=== PATIENT | male | born 1980 | race Caucasian/White ===

== ENCOUNTER 2024-02-21 10:43 | Inpatient (IN) | payer OTHER, SELFPAY ==
[2024-02-21] VITALS (11 sets, daily range): BP systolic 107–150; BP diastolic 58–100; PULSE 65–100; RESP 12–169; TEMP 36.6–36.8; O2SAT 92–99; BMI 28.3; BMI 29.3
--- NOTE | 2024-02-21 | ECG_ITS ---
Test Reason : ACS Blood Pressure : / mmHG Vent. Rate : 081 BPM Atrial Rate : 081 BPM P-R Int : 188 ms QRS Dur : 094 ms QT Int : 380 ms P-R-T Axes : 054 010 028 degrees QTc Int : 441 ms Normal sinus rhythm Normal ECG No previous ECGs available Referred By: Tamia Romero Electronically Signed By:GINNY WARREN MD
--- NOTE | 2024-02-21 11:20 | ED_ITS ---
HPI - General Adult General Chief complaint: Recheck/Abnormal Lab/Rx Stated complaint: diabetic episode, cant see Time Seen by Provider: 02/21/24 13:12 Source: patient Mode of arrival: ambulatory Limitations: no limitations History of Present Illness ED Provider: Dr. Prescott HPI narrative: 43-year-old male no past medical history does not take medications who states he does have strong family history of diabetes he has been having increased thirst elevated blood sugar blurry vision. Patient has not been diagnosed with diabetes. He denies any falls or injuries he denies chest pain or cough patient seen in triage labs were sent patient does have an anion gap positive beta hydroxybutyrate. Related Data Home Medications ?Medication ?Instructions ?Recorded ?Confirmed No Known Home Meds 02/21/24 02/21/24 Allergies Allergy/AdvReac Type Severity Reaction Status Date / Time Penicillins [PENICILLINS] Allergy Severe HIVES Unverified 02/21/24 11:19 Review of Systems 2 Review of Systems: Review of systems: General: Patient denies any fever chills recent illness or falls Musculoskeletal: Denies back pain or body aches or other injuries HEENT: denies headache, runny nose, ear pain Respiratory: denies shortness of breath, cough Cardiovascular: no chest pain or palpitations : denies dysuria, frequency Abdomen: no nausea vomiting denies abdominal pain Extremities: no swelling, no pain Skin: no diaphoresis Yes all other systems are reviewed and are negative PMFSH Past Medical History Medical History (Updated 02/21/24 @ 16:27 by Danya Dillon RN) Sleep apnea Social History Social History Household Members: None Housing: Apartment Do you presently have visiting nurse or other home services: No Patient Tobacco Use Status: Never used Tobacco Use of substances other than those prescribed or required for medical reasons: No Currently Displaying Signs/Symptoms of Drug Intoxication Withdrawal: No Have you been hit, kicked, punched, or otherwise hurt by someone within the past year? If so, by whom?: No Do you feel safe in your current relationship?: Yes Is there a partner from a previous relationship who is making you feel unsafe now?: No Are you made to feel afraid or neglected: No Advance Directives: No Advance Directives Information Provided: Yes Do you have a plan to hurt others: No Plan Recently lost weight without trying: No Nutrition Risks: No Nutritional Risk Physical Exam ED Vital Signs: Vital Signs - 24 hr 02/21/24 11:17 Temperature 98.3 F Pulse Rate 100 Respiratory Rate 18 Blood Pressure 150/100 H Pulse Oximetry 96 Oxygen Delivery Method Room Air BMI result Body Mass Index 29.3 Neurological exam: CN II- XII tested. Patient is alert and oriented to person place and time. Patient has no dysphagia or dysarthia, denies good vision in all four vision tafoya no nystagmus on exam, good strength to upper and lower extremities with normal reflexes to brachioradialis, wrist, patella and achilles. Negative romberg, good finger to nose and heel to stanley. General: Well-appearing well-nourished in no signs of distress HEENT: Normocephalic atraumatic Neck: No signs of JVD, no masses no tenderness or lymphadenopathy Cardiovascular: Regular rate and rhythm Respiratory: Clear to auscultation bilaterally Abdomen: Soft nontender no masses Extremities: Normal pedal pulses no signs of edema Skin: Dry warm no rashes Back: No tenderness full ROM Course Course Course Narrative: RME: DOne by GERBER Fermin. 43-year-old male presents to ED for blurry vision and elevated glucose. Patient states family history of diabetes. Patient states at work started having blurry vision. They did a fingerstick on patient in his glucose was 400. Patient states also polyuria. Patient denies any weight loss. Physical exam negative for any signs of any neuro deficits. Not suspecting stroke. Labs POC ordered Medications Administered Generic Name Dose Route Start Last Admin Trade Name Freq PRN Reason Stop Dose Admin Enoxaparin Sodium 40 mg 02/21/24 16:00 02/21/24 16:52 Enoxaparin Sodium 40 Mg/0.4 Ml Syringe SUBCUT 40 mg Q24H MANUELA Administration Discontinued Medications Generic Name Dose Route Start Last Admin Trade Name Freq PRN Reason Stop Dose Admin Lactated Ringer's 1,000 mls @ 999 mls/hr 02/21/24 13:15 02/21/24 15:12 Lr IV 02/21/24 14:15 Infused .Q1H1M MANUELA Infusion Insulin Human Regular 100 unit in 100 mls @ 8 mls/hr 02/21/24 13:15 02/21/24 21:43 Myxredlin IVCONT Infused .[id number] MANUELA Titration Protocol 8 UNIT/HR Sodium Chloride 1,000 mls @ 999 mls/hr 02/21/24 13:45 02/21/24 15:12 Ns IV 02/21/24 14:45 Infused .Q1H1M MANUELA Infusion Potassium Chloride/Dextrose 20 meq in 1,000 mls @ 100 mls/hr 02/21/24 15:00 02/21/24 21:44 Kcl 20 Meq In 5 % Dextrose IVCONT Infused .Q10H MANUELA Infusion Potassium Phosphate 15 mmol in 250 mls @ 62.5 mls/hr 02/21/24 15:13 02/21/24 20:16 Kphos IV 02/21/24 19:12 Infused ONCE ONE Infusion Medical Decision Making Medical Decision Making MDM Narrative: Labs are back the patient has potassium of 3.9 I will start the patient on insulin I think the patient would benefit from admission I will discuss the case with the ICU Differential Diagnosis Differential Diagnoses: The differential diagnosis associated with the presentation includes New onset diabetes diabetic ketoacidosis dehydration electrolyte abnormality Admission/Observation Consideration of admission/observation: Escalation of care including admission/observation considered Consult Healthcare Provider Management of the patient was discussed with: Hospitalist and Online Content Coordinator [id number] Dr. Romero from the ICU and I discussed the case and reviewed the labs. She stated she will take the patient. Lab Data MDM Lab Attestation statement: I reviewed the patient's lab results. 02/21/24 11:38 02/21/24 18:18 Labs: Lab Results 02/21/24 02/21/24 02/21/24 Range/Units 11:38 11:43 13:10 WBC 5.8 (4.8-10.8) X10*3/uL RBC 5.37 (4.60-5.80) X10*6/uL Hgb 15.4 (14.0-18.0) g/dl Hct 42.9 (42.0-52.0) % MCV 79.9 L (80.0-98.0) fL MCH 28.7 (27.0-33.0) pg MCHC 35.9 (31.0-36.0) g/dl RDW 12.3 (11.0-16.0) % Plt Count 271 (160-400) X10*3/uL MPV 9.7 (9.4-12.4) fL Immature Gran % (Auto) 0.2 (0.0-0.4) % Neut % (Auto) 68.7 (45-73) % Lymph % (Auto) 25.8 (20-40) % [place] % (Auto) 4.3 (2-11) % Eos % (Auto) 0.3 (0-4) % Baso % (Auto) 0.7 (0-2) % Lymph # (Auto) 1.5 (1.2-4.9) X10*3/uL [place] # (Auto) 0.3 (0.1-1.2) X10*3/uL Eos # (Auto) 0.0 (0.0-0.4) X10*3/uL Baso # (Auto) 0.0 (0.0-0.2) X10*3/uL Abs Immat Gran (auto) 0.01 (0.00-0.03) X10*3/uL Absolute Neuts (auto) 4.0 (2.0-8.3) x10*3/uL Absolute Nucleated RBC 0.000 (0.0-0.012) X10*3/uL Nucleated RBC % (auto) 0.0 (0.0-0.2) /100WBC Sodium 132 L (135-145) mmol/L Potassium 3.9 (3.3-5.1) mmol/L Chloride 97 (96-108) mmol/L Carbon Dioxide 23 (22-29) mmol/L Anion Gap 16 (12-20) BUN 13 (9-16) mg/dL Creatinine 1.32 (0.5-1.4) mg/dL Estim Creat Clear Calc 78.0 Estimated GFR 59 POC Glucose 393 H* 341 H (60-115) mg/dL Random Glucose 395 H* (60-115) mg/dL Calcium 9.4 (8.4-10.2) mg/dL Total Bilirubin 0.5 (0.0-1.0) mg/dL AST 22 (5-37) U/L ALT 30 (0-40) U/L Alkaline Phosphatase 132 H (39-117) U/L Total Protein 7.6 (6.5-8.0) g/dL Albumin 4.4 (3.5-5.0) g/dL Beta-Hydroxybutyrate 1.92 H (0.02-0.27) mmol/L Urine Color Yellow Urine Appearance Clear Urine pH 5.0 (5.0-9.0) Ur Specific [place] >= 1.030 H (1.005-1.025) Urine Protein Trace (Neg-Trace) mg/dL Urine Glucose (UA) >=1000 H (Negative) mg/dL Urine Ketones 80 (Negative) mg/dL Urine Blood Negative (Negative) Urine Nitrite Negative (Negative) Ur Leukocyte Esterase Negative (Negative) Urine RBC 0-2 (0-2) /HPF Urine WBC 0-5 (0-5) /HPF Ur Squamous Epith Cells 0-2 (0-2) /HPF Urine Bacteria None Seen (None Seen) Hyaline Casts 0-2 (0-2) /LPF Independent Interpretation I performed an independent interpretation of an: EKG and Plain X-Ray Radiology Impression Discussion of test interpretation with radiology: I have reviewed the radiologist's reading. External Record Review External record reviewed: Inpatient record, Office record and Outpatient record Chronic Conditions Patient?s care impacted by: Diabetes Core Measures AMI core measures followed: Yes Critical Care Time Critical Care Time Critical Care Time: Yes Total Critical Care Time: 35 Attestation: Concern for DKA started on insulin drip discussion with ICU and admission. Discharge Plan Discharge Clinical Impression: Diabetes mellitus, new onset, Diabetic ketoacidosis Patient Disposition: Admitted As Inpatient Discharge Date/Time: 02/21/24 14:31
[2024-02-21 11:41] LABS: MANUAL DIFF FLAG NO
[2024-02-21 11:44] LABS: Basophils Percent Auto 0.7 % (0-2); Eosinophils Percent Auto 0.3 % (0-4); Hematocrit 42.9 % (42.0-52.0); Hemoglobin 15.4 g/dl (14.0-18.0); Imm Gran Abs Auto 0.01 X10*3/uL (0.00-0.03); Imm Gran Pct Auto 0.2 % (0.0-0.4); Lymphocytes Absolute Auto 1.5 X10*3/uL (1.2-4.9); Lymphocytes Percent Auto 25.8 % (20-40); Mean Corpuscular HGB Conc 35.9 g/dl (31.0-36.0); Mean Corpuscular Hemoglobin 28.7 pg (27.0-33.0); Mean Corpuscular Volume 79.9 fL (80.0-98.0); Mean Platelet Volume 9.7 fL (9.4-12.4); Monocytes Absolute Auto 0.3 X10*3/uL (0.1-1.2); Monocytes Percent Auto 4.3 % (2-11); Neutrophils Percent Auto 68.7 % (45-73); Platelet Count 271 X10*3/uL (160-400); Red Blood Count 5.37 X10*6/uL (4.60-5.80); Red Cell Distribution Width 12.3 % (11.0-16.0); White Blood Count 5.8 X10*3/uL (4.8-10.8)
[2024-02-21 11:45] LABS: Appearance Urine Clear; Color Urine Yellow; Glucose Urine UA >=1000 mg/dL (Negative); Leukocyte Esterase Urine Negative (Negative); Nitrite Urine Negative (Negative); Specific Gravity - Urine >= 1.030 (1.005-1.025); UMIC TRIGGER UACC YES; Urine Blood Negative (Negative); Urine Ketones 80 mg/dL (Negative); Urine Protein Trace mg/dL (Neg-Trace)
[2024-02-21 11:48] LABS: Glucose, Whole Blood 393 mg/dL (60-115)
[2024-02-21 11:53] LABS: Bacteria Urine None Seen (None Seen); Hyaline Casts Urine 0-2 /LPF (0-2); RBC Urine 0-2 /HPF (0-2); Squamous Epithelial Cell Urine 0-2 /HPF (0-2); WBC Urine 0-5 /HPF (0-5)
[2024-02-21 12:03] LABS: Beta-Hydroxybutyrate 1.92 mmol/L (0.02-0.27)
[2024-02-21 12:13] LABS: Alanine Aminotransferase 30 U/L (0-40); Albumin Level 4.4 g/dL (3.5-5.0); Alkaline Phosphatase 132 U/L (39-117); Anion Gap 16 (12-20); Aspartate Amino Transferase 22 U/L (5-37); Bilirubin Total 0.5 mg/dL (0.0-1.0); Blood Urea Nitrogen 13 mg/dL (9-16); Calcium 9.4 mg/dL (8.4-10.2); Carbon Dioxide 23 mmol/L (22-29); Chloride 97 mmol/L (96-108); Estimated Glomerular Filt Rate 59; Glucose Random 395 mg/dL (60-115); Potassium 3.9 mmol/L (3.3-5.1); Sodium 132 mmol/L (135-145); Total Protein 7.6 g/dL (6.5-8.0)
[2024-02-21] MEDS: Lactated Ringers 1,000 ML 999 ML IV (13:22)
--- NOTE | 2024-02-21 13:38 | P.HPCC_ITS ---
History of Present Illness Date of Service: 02/21/24 Chief Complaint: New-Diagnosis Diabetes Mellitus Patient is a 43 Y M presenting initially to emergency department on 02/20 w/ polydipsia and polyuria, found to have laboratories suggestive of diabetic ketoacidosis, admitted ICU on insulin gtt Review of Systems 2 Review of Systems: Yes all other systems are reviewed and are negative [facility] Social History Social History Patient Tobacco Use Status: Never used Tobacco Advance Directives: No Advance Directives Information Provided: Yes Do you have a plan to hurt others: No Plan Meds Allergies Allergy/AdvReac Type Severity Reaction Status Date / Time Penicillins [PENICILLINS] Allergy Severe HIVES Unverified 02/21/24 11:19 Active Medications: Current Medications Lactated Ringer's (Lr) 1,000 mls @ 999 mls/hr IV .Q1H1M MANUELA Stop: 02/21/24 14:15 Last Admin: 02/21/24 13:22 Dose: 999 mls/hr Insulin Human Regular (Myxredlin) 100 unit in 100 mls @ 8 mls/hr IVCONT .[id number] MANUELA; Protocol Dextrose (D10) 250 mls @ 750 mls/hr IV Q30M PRN PRN Reason: BG <70 Home Medications ?Medication ?Instructions ?Recorded ?Confirmed ?Last Taken ?Type No Known Home Meds 02/21/24 02/21/24 Unknown History Physical Exam 2 Vital Signs: Vital Signs: Last Vital Signs Temp 98.3 F 02/21/24 11:17 Pulse 100 02/21/24 11:17 Resp 18 02/21/24 11:17 BP 150/100 H 02/21/24 11:17 Pulse Ox 96 02/21/24 11:17 O2 Del Method Room Air 02/21/24 11:17 BMI result Body Mass Index 28.3 Const: General: cooperative, healthy appearing, comfortable, no acute distress, well developed, alert, awake and Physically active O rientation/consciousness: patient oriented x3 HEENT: Head: Yes normal to inspection, Yes normocephalic and Yes atraumatic Eyes: General: appearance normal, both eyes and all related structures Neck: Neck: Yes normal visual inspection, Yes full ROM, Yes no meningeal signs, Yes trachea midline and Yes supple Chest: Chest palpation & inspection: normal inspection of the chest Resp: Other: no appreciable rales, rhonchi, wheezing Effort & Inspection: normal respiratory effort Cardio: Rate: regular rate Rhythm: regular rhythm GI: Inspection: Yes normal to inspection, No Abdominal wall edema and No distended Palpation (GI): Soft to palpation, not firm, nontender, no guarding and not rigid Skin: General skin exam: no rashes or lesions noted Neuro: Other: appreciable decreased far vision, bilaterally; normal near vision, bilaterally General: patient oriented x3, tone normal, moves all extremities, no meningeal signs and no focal motor deficits Extrem: General: Yes normal to inspection, Yes full ROM, Yes capillary refill normal and Yes no clubbing, cyanosis or edema Psych: Appearance: grossly normal Results Labs 02/21/24 11:38 02/21/24 11:38 Labs: Laboratory Results - last 24 hr 02/21/24 02/21/24 11:38 11:43 MCV 79.9 L MCH 28.7 MCHC 35.9 RDW 12.3 Plt Count 271 MPV 9.7 Immature Gran % (Auto) 0.2 Neut % (Auto) 68.7 Lymph % (Auto) 25.8 [place] % (Auto) 4.3 Eos % (Auto) 0.3 Baso % (Auto) 0.7 Lymph # (Auto) 1.5 [place] # (Auto) 0.3 Eos # (Auto) 0.0 Baso # (Auto) 0.0 Abs Immat Gran (auto) 0.01 Absolute Neuts (auto) 4.0 Absolute Nucleated RBC 0.000 Nucleated RBC % (auto) 0.0 Anion Gap 16 Estim Creat Clear Calc 78.0 Estimated GFR 59 POC Glucose 393 H* Random Glucose 395 H* Calcium 9.4 Total Bilirubin 0.5 AST 22 ALT 30 Alkaline Phosphatase 132 H Total Protein 7.6 Albumin 4.4 Beta-Hydroxybutyrate 1.92 H Urine Color Yellow Urine Appearance Clear Urine pH 5.0 Ur Specific [place] >= 1.030 H Urine Protein Trace Urine Glucose (UA) >=1000 H Urine Ketones 80 Urine Blood Negative Urine Nitrite Negative Ur Leukocyte Esterase Negative Urine RBC 0-2 Urine WBC 0-5 Ur Squamous Epith Cells 0-2 Urine Bacteria None Seen Hyaline Casts 0-2 Assessment and Plan (1) Diabetic ketoacidosis: Status: Acute Plan Patient is a 43 Y M presenting initially to emergency department on 02/20 w/ polydipsia and polyuria, found to have laboratories suggestive of diabetic ketoacidosis, admitted ICU on insulin gtt N: no acute issues CV: no acute issues R: no acute issues GI: NPO while on DKA protocol : no acute issues H: no acute issues ID: no acute issues E: new-diagnosis insulin-dependent diabetes mellitus, c/b DKA, on DKA protocol
[2024-02-21] MEDS: Insulin Regular/NS 100 UNIT/100 ML PLAST..BAG 8 UNIT IVCONT (13:42)
[2024-02-21] MEDS: 0.9 % Sodium Chloride 1,000 ML 999 ML IV (13:45)
[2024-02-21 14:05] LABS: Glucose, Whole Blood 341 mg/dL (60-115)
--- NOTE | 2024-02-21 14:20 | PHA.MEDREC ---
Addendum entered by Santy Fuentes [facility] 02/21/24 16:42: Med double checked by [facility] Original Note: Pharmacy Consult ? Medication Reconciliation Pharmacy has completed the medication reconciliation. Patient states they are not taking anything.
[2024-02-21 14:43] LABS: Glucose, Whole Blood 252 mg/dL (60-115)
[2024-02-21 14:47] LABS: VBG Base Excess -1.4 mmol/L; VBG HCO3 20 mmol/L (22-26); VBG pCO2 25 mmHg; VBG pO2 60 mmHg
[2024-02-21 15:03] LABS: Anion Gap 14 (12-20); Blood Urea Nitrogen 12 mg/dL (9-16); Carbon Dioxide 23 mmol/L (22-29); Chloride 103 mmol/L (96-108); Creatinine Clr Calc Pharmacy 101.4; Estimated Glomerular Filt Rate > 60; Glucose Random 268 mg/dL (60-115); Magnesium 2.1 mg/dL (1.6-2.6); Phosphorus 2.1 mg/dL (2.7-4.5); Potassium 3.8 mmol/L (3.3-5.1); Sodium 136 mmol/L (135-145)
[2024-02-21] MEDS: KCl 20 mEq in 5 % Dextrose 20 MEQ/1,000 ML IV.SOLN 100 MEQ IVCONT (15:23)
[2024-02-21 15:28] LABS: Glucose, Whole Blood 202 mg/dL (60-115)
[2024-02-21] MEDS: Potassium Phosphate/NS 15 MMOL/250 ML PLAST..BAG 62.5 MMOL IV (16:09)
[2024-02-21 16:34] LABS: Glucose, Whole Blood 117 mg/dL (60-115)
[2024-02-21] MEDS: Enoxaparin Sodium 40 MG/0.4 ML SYRINGE SUBCUT (16:52)
[2024-02-21 17:36] LABS: Glucose, Whole Blood 86 mg/dL (60-115)
[2024-02-21 18:06] LABS: Glucose, Whole Blood 76 mg/dL (60-115)
[2024-02-21 18:31] LABS: Glucose, Whole Blood 97 mg/dL (60-115)
[2024-02-21 18:49] LABS: Anion Gap 10 (12-20); Blood Urea Nitrogen 10 mg/dL (9-16); Calcium 8.3 mg/dL (8.4-10.2); Carbon Dioxide 23 mmol/L (22-29); Chloride 107 mmol/L (96-108); Creatinine Clr Calc Pharmacy 132.2; Estimated Glomerular Filt Rate > 60; Glucose Random 88 mg/dL (60-115); Phosphorus 2.8 mg/dL (2.7-4.5); Potassium 3.2 mmol/L (3.3-5.1); Sodium 137 mmol/L (135-145)
[2024-02-21 18:58] LABS: Venous Blood Gas Refer to POC result
[2024-02-21 19:08] LABS: Glucose, Whole Blood 110 mg/dL (60-115)
[2024-02-21 20:03] LABS: Glucose, Whole Blood 137 mg/dL (60-115)
[2024-02-21 21:16] LABS: Glucose, Whole Blood 135 mg/dL (60-115)
[2024-02-22] VITALS (14 sets, daily range): BP systolic 105–137; BP diastolic 61–91; PULSE 71–94; RESP 12–18; TEMP 36.1–36.7; O2SAT 90–99; BMI 32.9
--- NOTE | 2024-02-22 | ECG_ITS ---
Test Reason : CHEST PAIN Blood Pressure : / mmHG Vent. Rate : 089 BPM Atrial Rate : 089 BPM P-R Int : 178 ms QRS Dur : 090 ms QT Int : 362 ms P-R-T Axes : 059 003 042 degrees QTc Int : 440 ms Normal sinus rhythm Normal ECG No previous ECGs available Referred By: Xavi Wilson Electronically Signed By:GINNY WARREN MD
[2024-02-22 00:10] LABS: Glucose, Whole Blood 150 mg/dL (60-115)
[2024-02-22 00:17] LABS: Alanine Aminotransferase 24 U/L (0-40); Albumin Level 3.6 g/dL (3.5-5.0); Alkaline Phosphatase 95 U/L (39-117); Anion Gap 16 (12-20); Aspartate Amino Transferase 24 U/L (5-37); Bilirubin Total 0.7 mg/dL (0.0-1.0); Blood Urea Nitrogen 9 mg/dL (9-16); Calcium 8.5 mg/dL (8.4-10.2); Carbon Dioxide 19 mmol/L (22-29); Chloride 105 mmol/L (96-108); Creatinine Clr Calc Pharmacy 124.4; Estimated Glomerular Filt Rate > 60; Glucose Random 161 mg/dL (60-115); Phosphorus 3.5 mg/dL (2.7-4.5); Potassium 3.6 mmol/L (3.3-5.1); Sodium 136 mmol/L (135-145); Total Protein 6.2 g/dL (6.5-8.0)
[2024-02-22] MEDS: Insulin Lispro 100 UNIT/ML 3 ML VIAL SUBCUT ×6 (00:43→22:02)
[2024-02-22] MEDS: Lactated Ringers 1,000 ML 150 ML IVCONT (00:48)
[2024-02-22 05:47] LABS: Estimated Average Glucose 272 mg/dL; Hemoglobin A1c % 11.1 % (<6.0)
[2024-02-22 06:11] LABS: MANUAL DIFF FLAG NO
[2024-02-22 06:14] LABS: Basophils Percent Auto 0.5 % (0-2); Eosinophils Absolute Auto 0.1 X10*3/uL (0.0-0.4); Eosinophils Percent Auto 1.3 % (0-4); Hematocrit 39.2 % (42.0-52.0); Hemoglobin 13.8 g/dl (14.0-18.0); Imm Gran Abs Auto 0.01 X10*3/uL (0.00-0.03); Imm Gran Pct Auto 0.2 % (0.0-0.4); Lymphocytes Absolute Auto 1.9 X10*3/uL (1.2-4.9); Lymphocytes Percent Auto 31.6 % (20-40); Mean Corpuscular HGB Conc 35.2 g/dl (31.0-36.0); Mean Corpuscular Hemoglobin 28.5 pg (27.0-33.0); Mean Corpuscular Volume 80.8 fL (80.0-98.0); Mean Platelet Volume 9.4 fL (9.4-12.4); Monocytes Absolute Auto 0.3 X10*3/uL (0.1-1.2); Monocytes Percent Auto 4.8 % (2-11); Neutrophils Absolute Auto 3.7 x10*3/uL (2.0-8.3); Neutrophils Percent Auto 61.6 % (45-73); Platelet Count 235 X10*3/uL (160-400); Red Blood Count 4.85 X10*6/uL (4.60-5.80); Red Cell Distribution Width 12.6 % (11.0-16.0)
[2024-02-22 06:26] LABS: Glucose, Whole Blood 163 mg/dL (60-115)
[2024-02-22 06:33] LABS: Phosphorus 2.8 mg/dL (2.7-4.5)
[2024-02-22 07:22] LABS: Glucose, Whole Blood 162 mg/dL (60-115)
[2024-02-22 07:48] LABS: Alanine Aminotransferase 25 U/L (0-40); Albumin Level 3.4 g/dL (3.5-5.0); Alkaline Phosphatase 88 U/L (39-117); Anion Gap 13 (12-20); Aspartate Amino Transferase 24 U/L (5-37); Bilirubin Total 0.7 mg/dL (0.0-1.0); Blood Urea Nitrogen 8 mg/dL (9-16); Calcium 8.6 mg/dL (8.4-10.2); Carbon Dioxide 22 mmol/L (22-29); Chloride 105 mmol/L (96-108); Creatinine Clr Calc Pharmacy 128.5; Estimated Glomerular Filt Rate > 60; Glucose Random 168 mg/dL (60-115); Potassium 3.4 mmol/L (3.3-5.1); Sodium 137 mmol/L (135-145); Total Protein 6.1 g/dL (6.5-8.0)
--- NOTE | 2024-02-22 08:25 | P.PNCC_ITS ---
Subjective Subjective Date of Service: 02/22/24 Interval History: no significant overnight events; transitioned from insulin gtt to SQ Critical Care Time (minutes): 0 Physical Exam 2 Vital Signs: Vital Signs: Last Vital Signs Temp 98.0 F 02/22/24 08:00 Pulse 76 02/22/24 08:00 Resp 15 02/22/24 08:00 BP 127/83 02/22/24 08:00 Pulse Ox 99 02/22/24 08:00 O2 Del Method Room Air 02/22/24 08:00 O2 Flow Rate 2 02/22/24 07:00 BMI result Body Mass Index 32.9 Const: General: cooperative, healthy appearing, comfortable, no acute distress, well developed, alert, awake and Physically active O rientation/consciousness: patient oriented x3 HEENT: Head: Yes normal to inspection, Yes normocephalic and Yes atraumatic Eyes: General: appearance normal, both eyes and all related structures Neck: Neck: Yes normal visual inspection, Yes full ROM, Yes trachea midline and Yes supple Chest: Chest palpation & inspection: normal inspection of the chest Resp: Other: no appreciable rales, rhonchi, wheezing Effort & Inspection: normal respiratory effort Cardio: Rate: regular rate Rhythm: regular rhythm GI: Inspection: Yes normal to inspection, No Abdominal wall edema and No distended Palpation (GI): Soft to palpation, not firm, nontender, no guarding and not rigid Skin: General skin exam: no rashes or lesions noted Neuro: General: patient oriented x3, tone normal, moves all extremities and no focal motor deficits Extrem: General: Yes normal to inspection, Yes full ROM, Yes capillary refill normal and Yes no clubbing, cyanosis or edema Psych: Appearance: grossly normal Objective Data Labs 02/22/24 05:51 02/22/24 07:07 Labs: Laboratory Results - last 24 hr 02/21/24 02/21/24 02/21/24 11:38 11:43 13:10 WBC 5.8 RBC 5.37 Hgb 15.4 Hct 42.9 MCV 79.9 L MCH 28.7 MCHC 35.9 RDW 12.3 Plt Count 271 MPV 9.7 Immature Gran % (Auto) 0.2 Neut % (Auto) 68.7 Lymph % (Auto) 25.8 [place] % (Auto) 4.3 Eos % (Auto) 0.3 Baso % (Auto) 0.7 Lymph # (Auto) 1.5 [place] # (Auto) 0.3 Eos # (Auto) 0.0 Baso # (Auto) 0.0 Abs Immat Gran (auto) 0.01 Absolute Neuts (auto) 4.0 Absolute Nucleated RBC 0.000 Nucleated RBC % (auto) 0.0 VBG pH VBG pCO2 VBG pO2 VBG HCO3 VBG O2 Saturation VBG Base Excess Sodium 132 L Potassium 3.9 Chloride 97 Carbon Dioxide 23 Anion Gap 16 BUN 13 Creatinine 1.32 Estim Creat Clear Calc 78.0 Estimated GFR 59 POC Glucose 393 H* 341 H Random Glucose 395 H* Estimat Average Glucose Hemoglobin A1c % Calcium 9.4 Phosphorus Magnesium Total Bilirubin 0.5 AST 22 ALT 30 Alkaline Phosphatase 132 H Total Protein 7.6 Albumin 4.4 Beta-Hydroxybutyrate 1.92 H Urine Color Yellow Urine Appearance Clear Urine pH 5.0 Ur Specific [place] >= 1.030 H Urine Protein Trace Urine Glucose (UA) >=1000 H Urine Ketones 80 Urine Blood Negative Urine Nitrite Negative Ur Leukocyte Esterase Negative Urine RBC 0-2 Urine WBC 0-5 Ur Squamous Epith Cells 0-2 Urine Bacteria None Seen Hyaline Casts 0-2 02/21/24 02/21/24 02/21/24 14:38 14:39 14:41 WBC RBC Hgb Hct MCV MCH MCHC RDW Plt Count MPV Immature Gran % (Auto) Neut % (Auto) Lymph % (Auto) [place] % (Auto) Eos % (Auto) Baso % (Auto) Lymph # (Auto) [place] # (Auto) Eos # (Auto) Baso # (Auto) Abs Immat Gran (auto) Absolute Neuts (auto) Absolute Nucleated RBC Nucleated RBC % (auto) VBG pH 7.50 H VBG pCO2 25 VBG pO2 60 VBG HCO3 20 L VBG O2 Saturation 93.0 VBG Base Excess -1.4 Sodium 136 Potassium 3.8 Chloride 103 Carbon Dioxide 23 Anion Gap 14 BUN 12 Creatinine 1.03 Estim Creat Clear Calc 101.4 Estimated GFR > 60 POC Glucose 252 H Random Glucose 268 H Estimat Average Glucose Hemoglobin A1c % Calcium 9.0 Phosphorus 2.1 L Magnesium 2.1 Total Bilirubin AST ALT Alkaline Phosphatase Total Protein Albumin Beta-Hydroxybutyrate Urine Color Urine Appearance Urine pH Ur Specific [place] Urine Protein Urine Glucose (UA) Urine Ketones Urine Blood Urine Nitrite Ur Leukocyte Esterase Urine RBC Urine WBC Ur Squamous Epith Cells Urine Bacteria Hyaline Casts 02/21/24 02/21/24 02/21/24 15:25 16:30 17:33 WBC RBC Hgb Hct MCV MCH MCHC RDW Plt Count MPV Immature Gran % (Auto) Neut % (Auto) Lymph % (Auto) [place] % (Auto) Eos % (Auto) Baso % (Auto) Lymph # (Auto) [place] # (Auto) Eos # (Auto) Baso # (Auto) Abs Immat Gran (auto) Absolute Neuts (auto) Absolute Nucleated RBC Nucleated RBC % (auto) VBG pH VBG pCO2 VBG pO2 VBG HCO3 VBG O2 Saturation VBG Base Excess Sodium Potassium Chloride Carbon Dioxide Anion Gap BUN Creatinine Estim Creat Clear Calc Estimated GFR POC Glucose 202 H 117 H 86 Random Glucose Estimat Average Glucose Hemoglobin A1c % Calcium Phosphorus Magnesium Total Bilirubin AST ALT Alkaline Phosphatase Total Protein Albumin Beta-Hydroxybutyrate Urine Color Urine Appearance Urine pH Ur Specific [place] Urine Protein Urine Glucose (UA) Urine Ketones Urine Blood Urine Nitrite Ur Leukocyte Esterase Urine RBC Urine WBC Ur Squamous Epith Cells Urine Bacteria Hyaline Casts 02/21/24 02/21/24 02/21/24 18:02 18:18 18:27 WBC RBC Hgb Hct MCV MCH MCHC RDW Plt Count MPV Immature Gran % (Auto) Neut % (Auto) Lymph % (Auto) [place] % (Auto) Eos % (Auto) Baso % (Auto) Lymph # (Auto) [place] # (Auto) Eos # (Auto) Baso # (Auto) Abs Immat Gran (auto) Absolute Neuts (auto) Absolute Nucleated RBC Nucleated RBC % (auto) VBG pH VBG pCO2 VBG pO2 VBG HCO3 VBG O2 Saturation VBG Base Excess Sodium 137 Potassium 3.2 L Chloride 107 Carbon Dioxide 23 Anion Gap 10 L BUN 10 Creatinine 0.79 Estim Creat Clear Calc 132.2 Estimated GFR > 60 POC Glucose 76 97 Random Glucose 88 Estimat Average Glucose Hemoglobin A1c % Calcium 8.3 L D Phosphorus 2.8 Magnesium 2.0 Total Bilirubin AST ALT Alkaline Phosphatase Total Protein Albumin Beta-Hydroxybutyrate Urine Color Urine Appearance Urine pH Ur Specific [place] Urine Protein Urine Glucose (UA) Urine Ketones Urine Blood Urine Nitrite Ur Leukocyte Esterase Urine RBC Urine WBC Ur Squamous Epith Cells Urine Bacteria Hyaline Casts 02/21/24 02/21/2424 19:05 20:00 21:03 WBC RBC Hgb Hct MCV MCH MCHC RDW Plt Count MPV Immature Gran % (Auto) Neut % (Auto) Lymph % (Auto) [place] % (Auto) Eos % (Auto) Baso % (Auto) Lymph # (Auto) [place] # (Auto) Eos # (Auto) Baso # (Auto) Abs Immat Gran (auto) Absolute Neuts (auto) Absolute Nucleated RBC Nucleated RBC % (auto) VBG pH VBG pCO2 VBG pO2 VBG HCO3 VBG O2 Saturation VBG Base Excess Sodium Potassium Chloride Carbon Dioxide Anion Gap BUN Creatinine Estim Creat Clear Calc Estimated GFR POC Glucose 110 137 H 135 H Random Glucose Estimat Average Glucose Hemoglobin A1c % Calcium Phosphorus Magnesium Total Bilirubin AST ALT Alkaline Phosphatase Total Protein Albumin Beta-Hydroxybutyrate Urine Color Urine Appearance Urine pH Ur Specific [place] Urine Protein Urine Glucose (UA) Urine Ketones Urine Blood Urine Nitrite Ur Leukocyte Esterase Urine RBC Urine WBC Ur Squamous Epith Cells Urine Bacteria Hyaline Casts 02/21/24 02/22/24 02/22/24 23:18 00:01 05:51 WBC 6.0 RBC 4.85 Hgb 13.8 L Hct 39.2 L MCV 80.8 MCH 28.5 MCHC 35.2 RDW 12.6 Plt Count 235 MPV 9.4 Immature Gran % (Auto) 0.2 Neut % (Auto) 61.6 Lymph % (Auto) 31.6 [place] % (Auto) 4.8 Eos % (Auto) 1.3 Baso % (Auto) 0.5 Lymph # (Auto) 1.9 [place] # (Auto) 0.3 Eos # (Auto) 0.1 Baso # (Auto) 0.0 Abs Immat Gran (auto) 0.01 Absolute Neuts (auto) 3.7 Absolute Nucleated RBC 0.000 Nucleated RBC % (auto) 0.0 VBG pH VBG pCO2 VBG pO2 VBG HCO3 VBG O2 Saturation VBG Base Excess Sodium 136 Potassium 3.6 Chloride 105 Carbon Dioxide 19 L Anion Gap 16 BUN 9 Creatinine 0.84 Estim Creat Clear Calc 124.4 Estimated GFR > 60 POC Glucose 150 H Random Glucose 161 H Estimat Average Glucose 272 Hemoglobin A1c % 11.1 H Calcium 8.5 Phosphorus 3.5 2.8 Magnesium 2.0 2.0 Total Bilirubin 0.7 AST 24 ALT 24 Alkaline Phosphatase 95 Total Protein 6.2 L Albumin 3.6 Beta-Hydroxybutyrate Urine Color Urine Appearance Urine pH Ur Specific [place] Urine Protein Urine Glucose (UA) Urine Ketones Urine Blood Urine Nitrite Ur Leukocyte Esterase Urine RBC Urine WBC Ur Squamous Epith Cells Urine Bacteria Hyaline Casts 02/22/24 02/22/24 02/22/24 06:22 07:07 07:18 WBC RBC Hgb Hct MCV MCH MCHC RDW Plt Count MPV Immature Gran % (Auto) Neut % (Auto) Lymph % (Auto) [place] % (Auto) Eos % (Auto) Baso % (Auto) Lymph # (Auto) [place] # (Auto) Eos # (Auto) Baso # (Auto) Abs Immat Gran (auto) Absolute Neuts (auto) Absolute Nucleated RBC Nucleated RBC % (auto) VBG pH VBG pCO2 VBG pO2 VBG HCO3 VBG O2 Saturation VBG Base Excess Sodium 137 Potassium 3.4 Chloride 105 Carbon Dioxide 22 Anion Gap 13 BUN 8 L Creatinine 0.86 Estim Creat Clear Calc 128.5 Estimated GFR > 60 POC Glucose 163 H 162 H Random Glucose 168 H Estimat Average Glucose Hemoglobin A1c % Calcium 8.6 Phosphorus Magnesium Total Bilirubin 0.7 AST 24 ALT 25 Alkaline Phosphatase 88 Total Protein 6.1 L Albumin 3.4 L Beta-Hydroxybutyrate Urine Color Urine Appearance Urine pH Ur Specific [place] Urine Protein Urine Glucose (UA) Urine Ketones Urine Blood Urine Nitrite Ur Leukocyte Esterase Urine RBC Urine WBC Ur Squamous Epith Cells Urine Bacteria Hyaline Casts Progress Note: A&P Assessment and plan (1) Diabetes mellitus, new onset: Status: Acute Plan Patient is a 43 Y M presenting initially to emergency department on 02/20 w/ polydipsia and polyuria, found to have laboratories suggestive of diabetic ketoacidosis, admitted ICU on insulin gtt N: no acute issues CV: no acute issues R: no acute issues GI: diabetic diet : no acute issues H: no acute issues ID: no acute issues E: new-diagnosis insulin-dependent diabetes mellitus, c/b DKA, resolved; now on insulin SQ P: no acute issues Quality Stroke Does the patient have a stroke diagnosis?: No VTE Prior VTE?: No VTE Risk Level:: Medical - moderate - high VTE Device Contraindication: N/A - Device Ordered VTE Drug Contraindication: N/A - Med Ordered
[2024-02-22] MEDS: Insulin Glargine,Hum.rec.anlog 100 UNIT/ML 10 ML VIAL 10 UNIT SUBCUT (08:27)
[2024-02-22] MEDS: 0.9 % Sodium Chloride Flush 3 ML SYRINGE IVFLUSH ×2 (08:27→22:03)
--- NOTE | 2024-02-22 10:02 | MHC.CM.PN ---
Met w/pt to review d/c planning needs: pt newly dx w/DM, will need followup appointments : reports he is independent w/all care needs, works, drives and has no DME or services. Pt resides w/[facility] who will transport pt to home. Pt states he is familiar w/DM management as both his parents had DM. Pt states he has no fear of needles but would like a CGM device as opposed to finger sticks. Pt has a cellphone w/diony capability and feels this would give him better glucose understanding and control. Pt to meet w/RD for preliminary diabetic teaching. HCP declined at this time. CM to follow
[2024-02-22 10:03] LABS: Glucose, Whole Blood 314 mg/dL (60-115)
--- NOTE | 2024-02-22 10:25 | MHC.CLN ---
RE: CONSULT DM TEACHING REVIEWED FOODS THAT AFFECT BLOOD SUGAR IE CARBOHYDRATES, FRUIT, DAIRY. DISCUSSED PORTIONS SIZES. PT DID REPORT HE DRINKS JUICE AND SODA-RECOMMEND ELIMINATING JUICE AND SWITCHING TO DIET SODA OR WATER. PT UNDERSTANDING GOOD, EXPECTED COMPLIANCE GOOD. RECOMMEND F/U WITH OUT PT RD UPON DISCHARGE HANDOUT GIVEN WITH OU PT RDS IN THE AREA NURSE MENENDEZ OBSERVED DURING TEACHING SESSION SEE ALSO TEACHING RECORD
[2024-02-22 11:32] LABS: Glucose, Whole Blood 274 mg/dL (60-115)
[2024-02-22 16:35] LABS: Glucose, Whole Blood 280 mg/dL (60-115)
[2024-02-22] MEDS: Enoxaparin Sodium 40 MG/0.4 ML SYRINGE SUBCUT (16:50)
[2024-02-22 20:05] LABS: Glucose, Whole Blood 211 mg/dL (60-115)
[2024-02-23 03:43] VITALS: BP 109/69; PULSE 63; RESP 16; TEMP 36.2; O2SAT 95
[2024-02-23 06:13] LABS: MANUAL DIFF FLAG NO
[2024-02-23 06:45] LABS: Basophils Percent Auto 0.6 % (0-2); Eosinophils Absolute Auto 0.1 X10*3/uL (0.0-0.4); Eosinophils Percent Auto 1.7 % (0-4); Hemoglobin 14.4 g/dl (14.0-18.0); Imm Gran Abs Auto 0.02 X10*3/uL (0.00-0.03); Imm Gran Pct Auto 0.4 % (0.0-0.4); Lymphocytes Absolute Auto 1.9 X10*3/uL (1.2-4.9); Lymphocytes Percent Auto 39.5 % (20-40); Mean Corpuscular Hemoglobin 29.3 pg (27.0-33.0); Mean Corpuscular Volume 81.3 fL (80.0-98.0); Mean Platelet Volume 11.1 fL (9.4-12.4); Monocytes Absolute Auto 0.3 X10*3/uL (0.1-1.2); Monocytes Percent Auto 6.8 % (2-11); Neutrophils Absolute Auto 2.5 x10*3/uL (2.0-8.3); Platelet Count 255 X10*3/uL (160-400); Red Blood Count 4.92 X10*6/uL (4.60-5.80); Red Cell Distribution Width 12.5 % (11.0-16.0); White Blood Count 4.8 X10*3/uL (4.8-10.8)
[2024-02-23 06:57] VITALS: BP 130/72; PULSE 80; RESP 18; TEMP 36.3; O2SAT 95
[2024-02-23 07:26] LABS: Glucose, Whole Blood 287 mg/dL (60-115)
[2024-02-23 07:28] LABS: Anion Gap 17 (12-20); Blood Urea Nitrogen 14 mg/dL (9-16); Calcium 8.9 mg/dL (8.4-10.2); Carbon Dioxide 20 mmol/L (22-29); Chloride 103 mmol/L (96-108); Creatinine Clr Calc Pharmacy 121.4; Estimated Glomerular Filt Rate > 60; Glucose Random 305 mg/dL (60-115); Phosphorus 2.7 mg/dL (2.7-4.5); Potassium 3.5 mmol/L (3.3-5.1)
[2024-02-23 07:34] LABS: Sodium 136 mmol/L (135-145)
[2024-02-23] MEDS: Insulin Glargine,Hum.rec.anlog 100 UNIT/ML 10 ML VIAL 15 UNIT SUBCUT (07:54)
[2024-02-23] MEDS: Insulin Lispro 100 UNIT/ML 3 ML VIAL SUBCUT ×2 (07:54→12:04)
[2024-02-23] MEDS: 0.9 % Sodium Chloride Flush 3 ML SYRINGE IVFLUSH ×2 (07:55→07:57)
--- NOTE | 2024-02-23 11:28 | PM.DS ---
DS: Providers Provider Date of Service: 02/23/24 Date of admission: 02/21/24 13:50 Primary care physician: Jonathon Griffith MD DS: Diagnosis Discharge Diagnosis (1) Diabetes mellitus, new onset: Status: Acute (2) Diabetic ketoacidosis: Status: Acute (3) Blurred vision, bilateral: Status: Acute (4) Acute hypokalemia: Status: Acute (5) Acute kidney injury: Status: Acute DS: Summary Hospital Course Hospital Course: Admission note HPI by ICU provider. Patient is a 43 Y M presenting initially to emergency department on 02/20 w/ polydipsia and polyuria, found to have laboratories suggestive of diabetic ketoacidosis, admitted ICU on insulin gtt. Hospital course The patient was admitted to ICU on insulin drip for DKA treatment. Gap closed and he was switched to long acting insulin with SSI as he had good tolerance of diet. blood sugars remained around 200. To be discharged home on Lantus 15 units, Sliding scale insulin and MEtformin 500 mg po with a plan to follow with PCP as outpatient as his HbA1c was 11.1. Presented with mild acute kideny injury and hypokalemia improved back to baseline with IV fluids and potassium replacement. To follow with PCP as outpatient for further monitoring and adjustments of home medicaitons. The patient reporting blurry vision that has been getting worse over the last few weeks. he was advised to follow with Opthalmology as outpatient for furhter work up. Discharge plan Start Metformin 500 mg twice daily for suger control Start Lantus insulin 15 units daily Short acting (Lispro) Insulin with mealtime Monitor blood sugar Follow with PCP for further adjustment of home medications Increase physical activity and monitor weight Diabetic diet To follow with certified coatings inspector for vision evaluation Time Attestation Discharge Coordination Time (in mins): 38 Quality: Safe Use of Opioids Does Pt have an Active Cancer Diagnosis on the Problem List?: No Quality: Stroke Does the patient have a stroke diagnosis?: No Physical Exam Vital Signs: Vital Signs: Last Vital Signs Temp 97.3 F 02/23/24 06:57 Pulse 80 02/23/24 06:57 Resp 18 02/23/24 06:57 BP 130/72 02/23/24 06:57 Pulse Ox 95 02/23/24 06:57 O2 Del Method Room Air 02/23/24 06:57 O2 Flow Rate 2.0 02/22/24 16:29 BMI result Body Mass Index 32.9 Const: Other: Constitutional : Awake, interactive, not in distress Neck : Normal inspection, Supple Cardiovascular : RRR, no JVP, no lower extremity edema Respiratory : good bilateral air entry, no crackles, wheezes or rhonchi Gastrointestinal: soft, lax, Normal bowel sounds, Non tender Skin : Warm, Dry Neurological : Alert & oriented x3, No focal deficit , CN 2-12 within normal DS: Data Data Completed and Pending Labs on day of discharge: Laboratory Results - last 24 hr 02/22/24 02/22/24 02/22/24 11:28 16:31 20:01 WBC RBC Hgb Hct MCV MCH MCHC RDW Plt Count MPV Immature Gran % (Auto) Neut % (Auto) Lymph % (Auto) [place] % (Auto) Eos % (Auto) Baso % (Auto) Lymph # (Auto) [place] # (Auto) Eos # (Auto) Baso # (Auto) Abs Immat Gran (auto) Absolute Neuts (auto) Absolute Nucleated RBC Nucleated RBC % (auto) Sodium Potassium Chloride Carbon Dioxide Anion Gap BUN Creatinine Estim Creat Clear Calc Estimated GFR POC Glucose 274 H 280 H 211 H Random Glucose Calcium Phosphorus Magnesium 02/23/24 02/23/24 05:58 07:02 WBC 4.8 RBC 4.92 Hgb 14.4 Hct 40.0 L MCV 81.3 MCH 29.3 MCHC 36.0 RDW 12.5 Plt Count 255 MPV 11.1 Immature Gran % (Auto) 0.4 Neut % (Auto) 51.0 Lymph % (Auto) 39.5 [place] % (Auto) 6.8 Eos % (Auto) 1.7 Baso % (Auto) 0.6 Lymph # (Auto) 1.9 [place] # (Auto) 0.3 Eos # (Auto) 0.1 Baso # (Auto) 0.0 Abs Immat Gran (auto) 0.02 Absolute Neuts (auto) 2.5 Absolute Nucleated RBC 0.000 Nucleated RBC % (auto) 0.0 Sodium 136 Potassium 3.5 Chloride 103 Carbon Dioxide 20 L Anion Gap 17 BUN 14 Creatinine 0.91 Estim Creat Clear Calc 121.4 Estimated GFR > 60 POC Glucose 287 H Random Glucose 305 H Calcium 8.9 Phosphorus 2.7 Magnesium 2.0 Discharge Plan Discharge Anticipated Discharge Date/Time: 02/23/24 11:19 Patient Disposition: Home, Self-Care Discharge Diagnosis: Diabetic Ketoacidosis Referrals: Jonathon Griffith MD [Primary Care Provider] - 1 Week Discharge Medications: New (DME) FreeStyle Lite Strips Strip See Rx Instructions .ROUTE .MEDSUPPLY Qty: 100 1RF Rx Instructions: As directed (DME) lancets Misc See Rx Instructions .ROUTE .MEDSUPPLY Qty: 200 1RF Rx Instructions: 4 times daily (DME) blood-glucose meter [FreeStyle Lite Meter] Kit See Rx Instructions .ROUTE .MEDSUPPLY Qty: 1 0RF Rx Instructions: As directed alcohol swabs Pads, Medicated 1 pad topical QIDACHS Qty: 200 1RF (DME) pen needle, diabetic [Pen Needle] 31 gauge x 5/16 needle See Rx Instructions .ROUTE .MEDSUPPLY Qty: 1200 0RF Rx Instructions: As directed insulin glargine 100 unit/mL (3 mL) insulin pen 15 unit subcut DAILY Qty: 15 2RF metformin 500 mg tablet 500 mg PO BIDWMEAL Qty: 120 1RF insulin lispro 100 unit/mL insulin pen See Protocol subcut USEASDIRECTD Qty: 15 2RF Protocol: Insulin Correction Scale Less than or equal to 110 ---- Give (units): 0 111 to 150 Give (units): 0 151 to 200 Give (units): 2 201 to 250 Give (units): 4 251 to 300 Give (units): 6 301 to 350 Give (units): 8 Greater than 350 Give (units): 10 Call MD if Blood Glucose > : 350 Discharge Orders: Discharge Order (Routine); Ordered 02/23/24 Ordered By: Xavi Wilson Diet: Diabetic diet Activity on Discharge: As tolerated Stand Alone Forms: Patient Portal Discharge page Print Language: Croatian Care Plan Goals: Start Metformin 500 mg twice daily for suger control Start Lantus insulin 15 units daily Short acting (Lispro) Insulin with mealtime Monitor blood sugar Follow with PCP for further adjustment of home medications Increase physical activity and monitor weight Diabetic diet To follow with certified coatings inspector for vision evaluation Health Concerns: Read below Plan of Treatment: Read below Assessment: Read below Patient Instructions: Diabetes Insipidus (GEN), Diabetic Ketoacidosis (GEN), Foot Care for People with Diabetes (GEN), Hypoglycemia in a Person with Diabetes (GEN), Type 2 Diabetes in Adults: New Diagnosis (GEN), Meal Planning with Diabetes Exchanges (GEN), Diabetic Retinopathy (GEN), Managing Diabetes During Sick Days (GEN), Type 2 Diabetes Management for Adults (GEN)
[2024-02-23 11:40] LABS: Glucose, Whole Blood 294 mg/dL (60-115)
--- NOTE | 2024-02-23 12:26 | MHC.CM.PN ---
pt dcd home self care
== END 2024-02-23 13:15 | disposition home or self-care (01) | DRG 420 ==
LOC: HO.ED 14:00 → HO.EDOVER 14:02 → HO.ICU 14:05 → HO.S3 02-22 14:58
PROVIDERS: Internal Medicine; Physician Assistant; Physician Assistant Medical; Admitting Provider Internal Medicine Critical Care Medicine; Emergency Provider Student in an Organized Health Care Education/Training Program; PCP Internal Medicine; Visit Provider Student in an Organized Health Care Education/Training Program
DX: E11.10 Type 2 diabetes mellitus with ketoacidosis without coma (principal); N17.9 Acute kidney failure, unspecified; E87.6 Hypokalemia
CPT/HCPCS: 36415; 80048; 80053; 81001; 82010; 82803; 82947; 83036; 83735; 84100; 85025; 93005; 99284; J1650; J3480; J7120

== ENCOUNTER 2024-02-21 13:50 | Outpatient (BNV) | payer OTHER, SELFPAY | END 2024-02-22 15:34 | PROVIDERS: Admitting Provider Internal Medicine Critical Care Medicine; Emergency Provider Student in an Organized Health Care Education/Training Program; PCP Internal Medicine; Visit Provider Internal Medicine Cardiovascular Disease | DX: R07.9 Chest pain, unspecified (principal) | CPT/HCPCS: 93010 ==

== ENCOUNTER 2024-02-21 13:50 | Outpatient (BNV) | payer OTHER, SELFPAY | END 2024-02-21 14:02 | PROVIDERS: Admitting Provider Internal Medicine Critical Care Medicine; Emergency Provider Student in an Organized Health Care Education/Training Program; PCP Internal Medicine; Visit Provider Internal Medicine Cardiovascular Disease | DX: I24.9 Acute ischemic heart disease, unspecified (principal) | CPT/HCPCS: 93010 ==

== ENCOUNTER → 2024-02-21 13:50 | Outpatient (BNV) | payer OTHER, SELFPAY | PROVIDERS: Admitting Provider Internal Medicine Critical Care Medicine; Emergency Provider Student in an Organized Health Care Education/Training Program; PCP Internal Medicine; Visit Provider Student in an Organized Health Care Education/Training Program | DX: E11.10 Type 2 diabetes mellitus with ketoacidosis without coma (principal); H53.8 Other visual disturbances; E87.6 Hypokalemia; N17.9 Acute kidney failure, unspecified | CPT/HCPCS: 99239 ==

== ENCOUNTER → 2024-02-21 13:50 | Outpatient (BNV) | payer OTHER, SELFPAY | PROVIDERS: Admitting Provider Internal Medicine Critical Care Medicine; Emergency Provider Student in an Organized Health Care Education/Training Program; PCP Internal Medicine; Visit Provider Internal Medicine Critical Care Medicine | DX: E11.10 Type 2 diabetes mellitus with ketoacidosis without coma (principal) | CPT/HCPCS: 99232; 99233 ==

== ENCOUNTER 2025-05-02 16:31 | Emergency (ER) | payer OTHER, SELFPAY ==
--- NOTE | ~2025-05-02 | CT_ITS ---
CLINICAL HISTORY: large soft tissue swelling left post neck CT soft tissue neck with contrast Comparison: None provided Findings: The visualized intracranial contents are unremarkable. No prevertebral fluid. Epiglottis is within normal limits. Pharyngeal mucosal space and parapharyngeal fat are normal. Salivary glands are unremarkable. No sialoliths. Thyroid gland is unremarkable. Within the posterior left suboccipital muscles, there is a 3.3 x 2.3 x 3.6 cm peripherally enhancing fluid collection. Significant surrounding soft tissue edema, phlegmon and moderate adenopathy. No consolidation at the lung apices. No acute fracture or dislocation. IMPRESSION: There is a 3.6 cm abscess within the left posterior suboccipital muscles with surrounding phlegmon, edema and adenopathy. This document has been electronically signed by: Geovanni Andujar MD on 05/02/2025 21:22:37
--- NOTE | 2025-05-02 16:46 | ED.GENADULT ---
HPI - General Adult General Chief complaint: Skin/Abscess/Foreign Body Stated complaint: sent by lump in neck Time Seen by Provider: 05/02/25 19:52 History of Present Illness ED Provider: Nam POLLOCK narrative: The patient is a 44-year-old male with a history of diabetes that I believe is type 2 diabetes. He is not currently on any medication for diabetes. He was hospitalized at this hospital in February of 2024 for significant hyperglycemia. At that time he was started on insulin and discharged on both insulin and metformin. The patient has had problems with the insurance and has not really had any follow up since his hospitalization at that time although he seems to have some connection with [facility]. The patient has been experiencing a swelling on the left side of his upper neck behind his ear for over a month. He went to the emergency room at [facility] on April 02. At that time the swelling has been present for several days. He apparently had a CT scan at [facility] on March 23. This CT scan was read as showing findings consistent with myositis. The CT read ?inflammatory changes surrounding the deep musculature of the left posterior neck, compatible with myositis. No fluid collection/abscess. The patient was not felt to be infected at the time and he was not started on antibiotics. Conversely he was prescribed a Medrol Dosepak. He was supposed to follow up with [facility] but he has not done so yet because of insurance problems. He now has insurance and is concerned that the swelling is quite persistent. He came to the emergency room. He has no ear pain. He has no sense of difficulty hearing. Related Data Previous Rx's ?Medication ?Instructions ?Recorded alcohol swabs 1 pad topical QIDACHS #200 ea 02/23/24 blood sugar diagnostic (FreeStyle #100 ea 02/23/24 Lite Strips) blood-glucose meter (FreeStyle #1 ea 02/23/24 Lite Meter kit) insulin glargine 100 unit/mL (3 15 unit (0.15 mL) subcut DAILY #15 02/23/24 mL) subcutaneous pen mL insulin lispro 100 unit/mL See Protocol subcut USEASDIRECTD 02/23/24 subcutaneous pen #15 mL lancets #200 ea 02/23/24 metformin 500 mg tablet 500 mg PO BIDWMEAL #120 tabs 02/23/24 pen needle, diabetic 31 gauge x #1,200 ea 02/23/24 5/16 (Pen Needle) Allergies Allergy/AdvReac Type Severity Reaction Status Date / Time Penicillins (PENICILLINS) Allergy Severe HIVES Verified 05/02/25 16:49 Review of Systems Review of Systems: Yes all other systems are reviewed and are negative [facility] Past Medical History Medical History (Updated 05/02/25 @ 23:19 by Corky Browning MD) Diabetes mellitus, new onset Sleep apnea Social History Social History Household Members: None Housing: Apartment Do you presently have visiting nurse or other home services: No Patient Tobacco Use Status: Never used Tobacco Advance Directives: No Advance Directives Information Provided: Yes service: No Physical Exam ED Vital Signs: Vital Signs - 24 hr 05/02/25 16:47 Temperature 98.7 F Pulse Rate 98 Respiratory Rate 16 Blood Pressure 198/107 H Pulse Oximetry 98 Oxygen Delivery Method Room Air BMI result Body Mass Index 26.9 Const Other: The patient is awake and alert. He was pleasant and cooperative. He has some obvious left-sided posterior neck swelling but otherwise he does not appear acutely ill or toxic in any way. Orientation/consciousness: patient oriented x3 HENMT Other: The patient has a large area of fairly indurated soft tissue swelling to the left posterior neck at the base of the skull and behind the left ear. The face appears unremarkable. Years appear unremarkable. Pharynx appears unremarkable. Eyes Other: Pupils are round equal, conjunctivae are clear, extraocular movements intact Neck Other: Large area of soft tissue swelling to the left posterior neck at the base of the left occipital scalp and behind the ear. The swelling is firm and indurated. There may be some subtle fluctuance.. There is no marked erythema to the skin overlying the swelling. It is not particularly warm. No apparent anterior adenopathy. Resp Effort & Inspection: normal respiratory effort Auscultation: clear to auscultation bilaterally Cardio Rate: regular rate Rhythm: regular rhythm Heart sounds: S1 normal heart sound present and S2 normal heart sound present GI Other: Abdomen is soft and nontender. Skin Other: Insert skin. The skin over the area of swelling is not particularly erythematous or warm. General skin exam: no rashes or lesions noted Neuro General: patient oriented x3, gait normal, tone normal, moves all extremities, no focal motor deficits and CN's II-XI intact bilaterally Extrem Other: Extremities are unremarkable Course Course Course Narrative: This is a Rapid Medical Examination (RME) performed by Lyly Moralez PA-C in triage. Full HPI, ROS, assessment and treatment plan per primary provider in the Main ED. Hx: Patient is a 44yo M who presents for evaluation of a L sided neck mass present x1 month after being seen by urgent care today. Endorses pain. Has been taking ibuprofen OTC for pain. Seen at [place] 1 month ago, diagnosed with acute myositis of the neck, discharged on methylprednisolone which he completed without improvement. Presents today with coontinued pain. Was unable to follow up as he did not have insurance. PE/vitals: large mass noted to L posterior neck region, firm, tender, no fluctuance, limited ROM d/t mass. Plan:labs, will defer imaging to primary provider Medications Administered Discontinued Medications Generic Name Dose Route Start Last Admin Trade Name Freq PRN Reason Stop Dose Admin Ceftriaxone Sodium 2 gm 05/02/25 22:14 05/02/25 22:43 Ceftriaxone Sodium 2 Gm Vial IVPUSH 05/02/25 22:15 2 gm ONCE ONE Administration Acetaminophen 1,000 mg in 100 mls @ 400 mls/hr 05/02/25 22:52 05/02/25 22:58 Ofirmev IV 05/02/25 23:06 400 mls/hr ONCE ONE Administration Iohexol 100 ml 05/02/25 20:38 05/02/25 20:38 Iohexol 350 Mg/Ml 100 Ml Infus..Btl IV 05/02/25 20:39 70 ml ONCE ONE Administration Ketorolac Tromethamine 15 mg 05/02/25 22:52 05/02/25 22:58 Ketorolac Tromethamine 15 Mg/Ml Vial IVPUSH 05/02/25 22:53 15 mg ONCE ONE Administration Medical Decision Making Medical Decision Making MDM Narrative: The patient is a 44-year-old male. He has type 2 diabetes although he is not currently on any medications. Generally speaking he is otherwise fairly healthy. He has had swelling to the left side of his neck for over a month. One month ago he had a CT scan that showed no abscess collection and this was felt to be a noninfectious myositis. He was put on a Medrol Dosepak. For insurance reasons he did not follow up with his primary care doctor I think. The swelling has persisted. He has just now gotten insurance and he came to the emergency room because his insurance is now in place and he is concerned that the swelling has been so persistent for the last month. The swelling is painful but he has had no associated fever, sweats, chills. No difficulty swallowing. No shortness of breath. No headache. A CT scan with IV contrast shows a peripherally enhancing fluid collection within the left occipital muscles. This is 3.3 x 2.3 by 3.6 cm. There is surrounding soft tissue edema, phlegmon, and moderate adenopathy. The impression is that there is a 3.6 cm abscess within the left posterior suboccipital muscles with surrounding phlegmon, edema, and adenopathy. I spoke to our surgery team at this hospital and it was felt that this is not an area of the body that they would be comfortable managing. I contacted [facility] but they are closed to transfers because of capacity. I have contacted the [place] transfer hotline. They apparently have spoken to the ENT surgeon at [facility] and the ENT surgeon did not feel this was an ENT case. The [place] transfer hotline then [place] [facility] [place]. The patient has been accepted in transfer to the emergency department at [facility] The accepting emergency room doctor is Dr. Cloud. I have chosen to initiate empiric antibiotics with ceftriaxone and doxycycline. Lab Data 05/02/25 17:00 05/02/25 17:00 Labs: Lab Results 05/02/25 Range/Units 17:00 WBC 7.5 (4.8-10.8) X10*3/uL RBC 4.58 L (4.60-5.80) X10*6/uL Hgb 12.5 L (14.0-18.0) g/dl Hct 37.7 L (42.0-52.0) % MCV 82.3 (80.0-98.0) fL MCH 27.3 (27.0-33.0) pg MCHC 33.2 (31.0-36.0) g/dl RDW 12.1 (11.0-16.0) % Plt Count 390 D (160-400) X10*3/uL MPV 8.8 L (9.4-12.4) fL Immature Gran % (Auto) 0.3 (0.0-0.4) % Neut % (Auto) 64.0 (45-73) % Lymph % (Auto) 27.0 (20-40) % [place] % (Auto) 6.6 (2-11) % Eos % (Auto) 1.6 (0-4) % Baso % (Auto) 0.5 (0-2) % Lymph # (Auto) 2.0 (1.2-4.9) X10*3/uL [place] # (Auto) 0.5 (0.1-1.2) X10*3/uL Eos # (Auto) 0.1 (0.0-0.4) X10*3/uL Baso # (Auto) 0.0 (0.0-0.2) X10*3/uL Abs Immat Gran (auto) 0.02 (0.00-0.03) X10*3/uL Absolute Neuts (auto) 4.8 (2.0-8.3) x10*3/uL Absolute Nucleated RBC 0.000 (0.0-0.012) X10*3/uL Nucleated RBC % (auto) 0.0 (0.0-0.2) /100WBC Sodium 139 (135-145) mmol/L Potassium 3.5 (3.3-5.1) mmol/L Chloride 104 (96-108) mmol/L Carbon Dioxide 27 (22-29) mmol/L Anion Gap 12 (12-20) BUN 14 (9-16) mg/dL Creatinine 1.05 (0.5-1.4) mg/dL Estim Creat Clear Calc 91.7 Estimated GFR > 60 Random Glucose 159 H (60-115) mg/dL Calcium 9.4 (8.4-10.2) mg/dL Magnesium 1.8 (1.6-2.6) mg/dL Total Bilirubin 0.2 (0.0-1.0) mg/dL AST 15 (5-37) U/L ALT 9 (0-40) U/L Alkaline Phosphatase 107 (39-117) U/L Lactate Dehydrogenase 150 (118-273) U/L Total Creatine Kinase 37 L (38-174) U/L C-Reactive Protein 3.26 H (< or = 0.50) mg/dL Total Protein 7.3 (6.5-8.0) g/dL Albumin 4.2 (3.5-5.0) g/dL Critical Care Time Critical Care Time Critical Care Time: Yes Total Critical Care Time: 35 Attestation: The patient was critically ill with a high probability of imminent or life-threatening deterioration. ?I spent greater than 30 minutes of discontinuous time evaluating the patient, delivering critical care at the bedside, discussing evaluating data with consultants. ?Critical care time does not include time spent performing separately billable procedures or teaching. ?Time spent performing critical care with 35 minutes. Discharge Plan Discharge Clinical Impression: Abscess of muscle of neck Patient Disposition: [facility] Transfer Details: [place] the emergency [place] [facility] [place] Prescriptions: No Action (DME) FreeStyle Lite Strips Strip See Rx Instructions .ROUTE .MEDSUPPLY Qty: 100 1RF Rx Instructions: As directed (DME) lancets Misc See Rx Instructions .ROUTE .MEDSUPPLY Qty: 200 1RF Rx Instructions: 4 times daily (DME) blood-glucose meter [FreeStyle Lite Meter] Kit See Rx Instructions .ROUTE .MEDSUPPLY Qty: 1 0RF Rx Instructions: As directed alcohol swabs Pads, Medicated 1 pad topical QIDACHS Qty: 200 1RF (DME) pen needle, diabetic [Pen Needle] 31 gauge x 5/16 needle See Rx Instructions .ROUTE .MEDSUPPLY Qty: 1200 0RF Rx Instructions: As directed insulin glargine 100 unit/mL (3 mL) insulin pen 15 unit subcut DAILY Qty: 15 2RF metformin 500 mg tablet 500 mg PO BIDWMEAL Qty: 120 1RF insulin lispro 100 unit/mL insulin pen See Protocol subcut USEASDIRECTD Qty: 15 2RF Protocol: Insulin Correction Scale Less than or equal to 110 ---- Give (units): 0 111 to 150 Give (units): 0 151 to 200 Give (units): 2 201 to 250 Give (units): 4 251 to 300 Give (units): 6 301 to 350 Give (units): 8 Greater than 350 Give (units): 10 Call MD if Blood Glucose > : 350 Referrals: Louie Juan MD [Physician, Internal Medicine] Print Language: Pakistani
[2025-05-02 16:47] VITALS: BP 198/107; PULSE 98; RESP 16; TEMP 37.1; O2SAT 98; BMI 26.9
[2025-05-02 17:05] LABS: MANUAL DIFF FLAG NO
[2025-05-02 17:08] LABS: Hematocrit 37.7 % (42.0-52.0); Hemoglobin 12.5 g/dl (14.0-18.0); Imm Gran Abs Auto 0.02 X10*3/uL (0.00-0.03); Imm Gran Pct Auto 0.3 % (0.0-0.4); Lymphocytes Absolute Auto 2.0 X10*3/uL (1.2-4.9); Mean Corpuscular HGB Conc 33.2 g/dl (31.0-36.0); Mean Corpuscular Hemoglobin 27.3 pg (27.0-33.0); Mean Corpuscular Volume 82.3 fL (80.0-98.0); NRBC Abs Auto 0.000 X10*3/uL (0.0-0.012); NRBC Pct Auto 0.0 /100WBC (0.0-0.2); Platelet Count 390 X10*3/uL (160-400); Red Blood Count 4.58 X10*6/uL (4.60-5.80); White Blood Count 7.5 X10*3/uL (4.8-10.8)
[2025-05-02 17:21] LABS: Alanine Aminotransferase 9 U/L (0-40); Albumin Level 4.2 g/dL (3.5-5.0); Alkaline Phosphatase 107 U/L (39-117); Anion Gap 12 (12-20); Aspartate Amino Transferase 15 U/L (5-37); Blood Urea Nitrogen 14 mg/dL (9-16); Calcium 9.4 mg/dL (8.4-10.2); Carbon Dioxide 27 mmol/L (22-29); Chloride 104 mmol/L (96-108); Creatinine Clr Calc Pharmacy 91.7; Estimated Glomerular Filt Rate > 60; Magnesium 1.8 mg/dL (1.6-2.6); Potassium 3.5 mmol/L (3.3-5.1); Sodium 139 mmol/L (135-145); Total Protein 7.3 g/dL (6.5-8.0)
--- OUTSIDE RECORDS SUMMARY | 2025-05-02 19:39 | XMS_ITS ---
Author Name [facility] Organization Unknown Care Team Organization Name Specialty Phone Email Start Date End Da rocky [facility] MACK SIERRA Primary Care 07/27/2022 03/06/2024
[2025-05-02] MEDS: iohexoL 350 MG/ML 100 ML INFUS..BTL IV (20:38)
[2025-05-02] MEDS: Lactated Ringers 1,000 ML 999 ML IV (23:25)
[2025-05-02 23:57] VITALS: BP 143/80; PULSE 78; RESP 19; TEMP 36.8; O2SAT 98
--- NOTE | 2025-05-03 00:01 | PC.NURSE ---
nurse to nurse report called to Cristina KIDD at [facility] in [place]
[2025-05-03 00:37] VITALS: BP 143/80; PULSE 78; RESP 19; TEMP 36.8; O2SAT 98
[2025-05-03 04:28] LABS: Erythrocyte Sedimentation Rate 40 MM/HR (0-15)
== END 2025-05-03 00:38 | disposition short-term general hospital (02) ==
PROVIDERS: Physician Assistant Medical; Emergency Provider Emergency Medicine
DX: L02.11 Cutaneous abscess of neck (principal); E11.9 Type 2 diabetes mellitus without complications; R22.1 Localized swelling, mass and lump, neck; R51.9 Headache, unspecified; M54.2 Cervicalgia; R11.0 Nausea; Z79.4 Long term (current) use of insulin; Z79.899 Other long term (current) drug therapy
CPT/HCPCS: 36415; 70491; 80053; 82550; 83036; 83615; 83735; 85025; 85652; 86140; 96361; 96365; 96375; 99285; J0131; J0696; J1271; J1885; J7120; Q9967

== ENCOUNTER → 2025-05-02 20:07 | Outpatient (BNV) | payer OTHER, SELFPAY | PROVIDERS: Emergency Provider Emergency Medicine; Visit Provider Radiology Vascular & Interventional Radiology | DX: R22.1 Localized swelling, mass and lump, neck (principal) | CPT/HCPCS: 70491 ==